=== PATIENT | male | born 1965 ===

== ENCOUNTER → 2020-11-01 | Outpatient (REF) ==
--- NOTE | 2020-11-01 14:15 | REP ---
INDICATION: NECK, SHOULDER AND BACK PAIN. COMPARISON: None. TECHNIQUE: AP, lateral, swimmer's and open-mouth views of the cervical spine FINDINGS: Alignment and lordosis maintained. Vertebral bodies intact. Disc spaces are relatively normal although minimal disc space narrowing at C4-5 cannot be excluded. Posterior elements and spinous processes are intact and normal. Open mouth view demonstrates normal C1-C2 articulation and odontoid process. IMPRESSION: Essentially age-appropriate examination. Very minimal disc space narrowing at C4-5 cannot be excluded. <Electronically signed by Rex Magana > 11/01/20 [id number]
--- NOTE | 2020-11-01 14:17 | REP ---
INDICATION: NECK, SHOULDER AND BACK PAIN COMPARISON: None. TECHNIQUE: AP, lateral, coned-down views of the lumbar spine. FINDINGS: Three views of the lumbosacral spine demonstrate satisfactory alignment and lordosis without acute fracture / compression injury or subluxation. Moderate degenerative change in glued in endplate sclerosis, osteophytosis, and disc space narrowing most notably involving L1-2 and L2-3 and to a lesser extent L4-5. IMPRESSION: 1. No acute fracture / compression injury or subluxation. 2. Moderate multilevel degenerative changes. <Electronically signed by Rex Magana > 11/01/20 1970
== END ==
LOC: M PLAIMG 12:51
PROVIDERS: ATTEND Internal Medicine
DX: Z00.00 Encounter for general adult medical examination without abnormal findings (principal)